=== PATIENT | male | born 1995 | race Caucasian/White ===

== ENCOUNTER 2018-05-23 12:26 | Emergency (ER) | payer SELFPAY ==
[~2018-05-23] VITALS: Ht 188 cm; Wt 115.2 kg
[2018-05-23 12:36] VITALS: BP 136/77
--- NOTE | 2018-05-23 13:16 | Emergency Room Report ---
History of Present Illness General Chief Complaint: Lower Back Pain or Injury Source: Patient Present Illness HPI 23-year-old male presents to the emergency department complaining of 10 out of 10 in severity low back pain with some radiation into the right gluteal/ posterior thigh 1 week. Patient reports onset after lifting heavy furniture. 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 Patient denies appreciable trauma or fall he also states that he has been doing lifting at the gym. Patient states that he was evaluated at an urgent care and had x-ray imaging performed which was normal. Patient states he continues to have pain he has used some anti-inflammatories however he has presented today to the emergency department for continued symptoms. Maciel spinal injections. Denies numbness tingling or loss of sensation or gross motor movements of the extremities, incontinence of bowel or bladder. Denies CP, Palpitations, LOC, AMS , dizziness, Changes in Vision, in ability to ambulate or appreciable weakness. Allergies: Coded Allergies: No Known Allergies (Unverified , 05/23/18) Patient History Past Medical History: see triage record Past Surgical History: none Pertinent Family History: none Reviewed Nursing Documentation: PMH: Agreed; PSxH: Agreed Nursing Documentation-PMH Past Medical History: No Stated History Review of Systems All Other Systems: negative except mentioned in HPI Physical Exam Vital Signs Date Time Temp Pulse Resp B/P (MAP) Pulse Ox O2 Delivery O2 Flow Rate FiO2 05/23/18 12:28 97.8 102 18 136/77 97 Room Air 97.9 Sp02 EP Interpretation: reviewed, normal General Appearance: no apparent distress, alert, GCS 15, non-toxic, mild distress - only with bending forward/ rising from sitting position, very mild if any. Head: normocephalic, atraumatic Eyes: bilateral eye normal inspection, bilateral eye PERRL ENT: hearing grossly normal, normal voice Neck: full range of motion Respiratory: lungs clear, normal breath sounds, speaking full sentences Cardiovascular #1: regular rate, rhythm Rectal: deferred Genitourinary: normal inspection, no CVA tenderness Musculoskeletal: back normal, gait/station normal, normal range of motion, tender - Mild Tenderness to palpation to paraspinal muscles of the lower back with primarily right lateral lumbosacral musculature ttp no significant or localized midline spinous process tenderness. some tightness palpated in the right paraspinal musculature. Neurologic: alert, oriented x3, responsive, motor strength/tone normal, sensory intact, normal gait, speech normal, grossly normal Psychiatric: judgement/insight normal Skin: normal color, no rash, warm/dry, well hydrated Medical Decision Making PA Attestation Dr. Oshea is my supervising Physician whom patient management has been discussed with. Diagnostic Impression: Primary Impression: Lumbosacral strain Qualified Codes: S39.012A - Strain of muscle, fascia and tendon of lower back , initial encounter Additional Impressions: Sciatica of right side Low back pain with sciatica Qualified Codes: M54.41 - Lumbago with sciatica, right side ER Course 23-year-old male presents to the emergency department complaining of 10 out of 10 in severity low back pain with some radiation into the right gluteal/ posterior thigh 1 week. Patient reports onset after lifting heavy furniture. 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 Patient denies appreciable trauma or fall he also states that he has been doing lifting at the gym. Patient states that he was evaluated at an urgent care and had x-ray imaging performed which was normal. Patient states he continues to have pain he has used some anti-inflammatories however he has presented today to the emergency department for continued symptoms. Maciel spinal injections. Denies numbness tingling or loss of sensation or gross motor movements of the extremities, incontinence of bowel or bladder. Denies CP, Palpitations, LOC, AMS , dizziness, Changes in Vision, in ability to ambulate or appreciable weakness. Ddx considered: epidural abscess, fracture, sprain/strain, meningitis, spinal chord injury, sciatica, cauda equina, Pyelonephritis, renal calculi just to name a few. Vital signs reviewed and are WNL during ED visit. Pt. is afebrile with no signs of infection Denies recent trauma. No saddle anesthesia noted, Pt. denies incontinence Neurovascular is intact FROM, able to ambulate, sit/ stand , rise from sitting position with out difficulty, with mild signs of distress if any. * Mild Tenderness to palpation to paraspinal muscles of the lower back with primarily right lateral lumbosacral musculature ttp no significant or localized midline spinous process tenderness. *Pt. describes pain today as moderate and radiates across the lower back. ORDERS: none warranted at this time. INTERVENTIONS: - 20mg IM Toradol -Tramadol PO -Patient is inquiring about MRI and I discussed with this patient that his physical exam does not suggest an emergent spinal condition. I discussed with this patient that he does not show any neurological deficits and is stable for outpatient evaluation and MRI as needed. I also discussed with this patient that he has not tried a prescribed regimen of conservative therapy and it is recommended as primary treatment since he is not showing significant neurological signs at this time, before going straight to advanced imaging. Patient also demonstrates financial concerns regarding emergency department visit and workup. Discussed with this patient that I'll provide him with a list of free reduced cost clinics that he can follow-up with for primary care and further evaluation or recommendations for physical therapy or advanced imaging.. I gave this patient ED return precautions, and went over symptoms that would indicate spinal cord/nerve didn't see/emergencies. Patient verbalizes understanding and agreement with this treatment plan, although he is visibly upset due to not receiving MRI today. D/W Pt. TREATMENT PLAN: conservative tx with muscle relaxers and rest. If after conservative treatment his symptoms persist will require further eval by either his PCP or a pain management provider. . DISCHARGE: At this time pt. is stable for d/c to home. Will provide printed patient care instructions, and any necessary prescriptions. Care plan and follow up instructions have been discussed with the patient prior to discharge. Last Vital Signs Date Time Temp Pulse Resp B/P (MAP) Pulse Ox O2 Delivery O2 Flow Rate FiO2 05/23/18 12:36 97.9 102 18 136/77 97 Room Air 97.9 Disposition: HOME, SELF-CARE Condition: Stable Scripts Ibuprofen* (MOTRIN*) 600 Mg Tablet 600 MG ORAL THREE TIMES A DAY, #30 TAB 0 Refills Prov: Jade Patel 05/23/18 Methocarbamol* (ROBAXIN*) 500 Mg Tablet 1000 MG PO TID, #42 TAB 0 Refills Prov: Jade Patel 05/23/18 Patient Instructions: Lumbosacral Strain, Sciatica, [id number] Additional Instructions: Take medications as directed. Follow up with a Primary Care Provider in 3-5 days, even if your symptoms have resolved. If symptoms persist additional evaluation and treatment may be necessary at the discretion of your primary care provider for physical therapy, or advanced imaging such as MRI. --Please review list of primary care clinics, if you do not already have a primary care provider Return sooner to ED if new symptoms occur, or current symptoms become worse. Do not drink alcohol, drive, or operate heavy machinery while taking Robaxin / Muscle Relaxers as this may cause drowsiness. - Please note that this Emergency Department Report was dictated using [employer] manager technology software, occasionally this can lead to erroneous entry secondary to interpretation by the dictation equipment. Jade Patel May 23, 2018 13:16
[2018-05-23] MEDS ORDERED: ROBAXIN500 MG PO (13:18)
[2018-05-23] MEDS ORDERED: IBUPROFEN600 MG ORAL (13:18)
[2018-05-23 13:22] VITALS: BP 134/72
== END 2018-05-23 13:22 | disposition home or self-care (01) ==
LOC: EMR 13:20
DX: S39.012A Strain of muscle, fascia and tendon of lower back, initial encounter (principal); M54.41 Lumbago with sciatica, right side; X50.0XXA Overexertion from strenuous movement or load, initial encounter; Y99.8 Other external cause status; Y92.69 Other specified industrial and construction area as the place of occurrence of the external cause; Z87.891 Personal history of nicotine dependence
CPT/HCPCS: 99283